=== PATIENT | male | born 2000 | race Two or more races ===

== ENCOUNTER 2023-01-25 14:53 | Emergency (ER) | payer OTHER ==
[~2023-01-25] VITALS: Ht 188 cm; Wt 79.5 kg
[2023-01-25 15:27] VITALS: BP 110/74; PULSE 71; RESP 16; TEMP 99.6
[2023-01-25] MEDS ORDERED: IBUPROFEN 600 MG TABLET PO ONE (16:00)
[2023-01-25] MEDS ORDERED: ACETAMINOPHEN 500 MG TABLET PO ONE (16:00)
[2023-01-25] MEDS ORDERED: IBUP-1492 PO (17:14)
[2023-01-25] MEDS ORDERED: ACET-3385 PO (17:14)
== END 2023-01-25 17:53 | disposition home or self-care (01) ==
LOC: EMS 14:54
DX: S83.005A Unspecified dislocation of left patella, initial encounter (principal); W01.0XXA Fall on same level from slipping, tripping and stumbling without subsequent striking against object, initial encounter; Y92.89 Other specified places as the place of occurrence of the external cause; Y99.0 Civilian activity done for income or pay
CPT/HCPCS: 29505; 99283